=== PATIENT | male | born 1945 | race Caucasian/White ===

== ENCOUNTER 2023-02-16 13:56 | Emergency (ER) | payer OTHER, MEDICARE | END 2023-02-16 15:20 | disposition home or self-care (01) | LOC: JP.ED 13:56 | DX: S20.219A Contusion of unspecified front wall of thorax, initial encounter (principal); E78.00 Pure hypercholesterolemia, unspecified; I10 Essential (primary) hypertension; Z79.899 Other long term (current) drug therapy; V89.2XXA Person injured in unspecified motor-vehicle accident, traffic, initial encounter; Y92.410 Unspecified street and highway as the place of occurrence of the external cause | CPT/HCPCS: 99282; 99283 ==